=== PATIENT | female | born 1985 | race African-American/Black ===

== ENCOUNTER 2017-06-26 09:46 | Emergency (ER) | payer BC ==
[2017-06-26 10:05] VITALS: BMI 37.5
--- NOTE | 2017-06-26 13:20 | PDOC ---
History of Present Illness - General Chief Complaint: Pain Stated Complaint: HEADACHES Time Seen by Provider: 06/26/17 11:24 Past History - Past Medical History Allergies/Adverse Reactions: Allergies Allergy/AdvReac Type Severity Reaction Status Date / Time No Known Allergies Allergy Verified 06/26/17 09:58 Home Medications: Ambulatory Orders Ibuprofen 800 mg PO TID #30 tablet 06/26/17 COPD: No Other medical history: DENIES. - Suicide/Smoking/Psychosocial Hx Smoking History: Never smoked *Physical Exam - Vital Signs Last Vital Signs Temp Pulse Resp BP Pulse Ox 98 F 82 19 140/95 99 06/26/17 09:58 06/26/17 09:58 06/26/17 09:58 06/26/17 09:58 06/26/17 09:58 ED Treatment Course - LABORATORY CBC & Chemistry Diagram: 06/26/17 14:45 06/26/17 14:45 *DC/Admit/Observation/Transfer Diagnosis at time of Disposition: Headache Qualifiers: Headache type: unspecified Headache chronicity pattern: unspecified pattern Intractability: not intractable Qualified Code(s): R51 - Headache - Discharge Dispostion Disposition: HOME Condition at time of disposition: Stable Admit: No - Referrals Referrals: Dimas Liz DO [Staff Physician] - - Patient Instructions Printed Discharge Instructions: DI for Headache Additional Instructions: You have headaches. Your head CT today was negative however you still need follow-up for your headaches. A referral for neurology has been provided. Please call them tomorrow to set up an appointment. You may take 800 mg of ibuprofen every 8 hours as needed for headaches. Return to the emergency department if you have worsening headache, nausea, vomiting, changes in your vision, or if you have any changes in your symptoms. - Post Discharge Activity Forms/Work/School Notes: Back to Work
[2017-06-26] MEDS ORDERED: ACETAMINOPHEN 325 MG TABLET (FP) PO ONE (13:22)
[2017-06-26] MEDS ORDERED: ACETAMINOPHEN 325 MG TABLET (FP) ONE ×2 (14:01→14:04)
[2017-06-26 15:20] LABS: BASO % 1.2 % (0-2.0); EOS % 1.6 % (0-4.5); HEMATOCRIT 40.5 % (32.4-45.2); HEMOGLOBIN 13.6 GM/dL (10.7-15.3); LYMPH % 44.5 % (8-40); MCH 25.1 pg (25.7-33.7); MCHC 33.5 g/dl (32.0-36.0); MEAN CELL VOLUME 74.9 fl (80-96); MONO % 7.1 % (3.8-10.2); NEUT % 45.6 % (42.8-82.8); PLATELET COUNT 340 K/MM3 (134-434); RDW 13.8 % (11.6-15.6); WHITE BLOOD COUNT 9.6 K/mm3 (4.0-10.0)
[2017-06-26 15:31] LABS: ALBUMIN 3.9 g/dl (3.4-5.0); ALK PHOS 87 U/L (45-117); ANION GAP 8 (8-16); BILIRUBIN,TOTAL 0.5 mg/dL (0.2-1.0); BLOOD UREA NITROGEN 9 mg/dL (7-18); CALCIUM 8.6 mg/dL (8.5-10.1); CHLORIDE 105 mmol/L (98-107); CO2 26 mmol/L (21-32); CREATININE 0.9 mg/dL (0.55-1.02); GLUCOSE,RANDOM 81 mg/dL (74-106); POTASSIUM 3.8 mmol/L (3.5-5.1); SGOT/AST 19 U/L (15-37); SGPT/ALT 23 U/L (12-78); SODIUM 139 mmol/L (136-145); TOT PROT 7.7 g/dl (6.4-8.2)
[2017-06-26] MEDS ORDERED: IBUPROFEN 400 MG TABLET (FP) PO ONE ×2 (17:18→17:21)
[2017-06-26 17:50] VITALS: BP 138/72; PULSE 86; TEMP 98.5
== END 2017-06-26 17:50 | disposition home or self-care (01) ==
LOC: JERFT 09:46 → JER 09:46
DX: R51 Headache (principal)
CPT/HCPCS: 36415; 70450-TC; 80053; 84703; 85025; 99283-25